=== PATIENT | female | born 1930 | race Caucasian/White ===

== ENCOUNTER 2016-12-10 11:33 | Day surgery (SDC) | payer MEDICARE ==
--- NOTE | 2016-12-06 13:37 | PCM.ANEPRE ---
Anesthesia Pre-Op Review Reason for Review: office request- re critical lab value- creatinine 5.11 Anesthesia Recommendations: Proceed with Procedure Additional Comments 86 yo with Stage V CKD followed by Dr. Guillaume with nephrology, not on dialysis, for bladder biopsy secondary to hematuria. Last visit with Dr. Guillaume in September showed Cr of 4.3. Latest Cr is 5.11. Per preop phone interview patient has no nausea, vomiting, confusion, or other uremic symptoms, and feels in her usual state of health. I spoke with Dr. Guillaume and if patient is symptomatic there is no change in management based on her latest Cr value. Proceed with DOS evaluation. Chart Reviewed by: Cy Ribeiro MD Dec 06, 2016 13:37
[~2016-12-10] VITALS: Ht 157.5 cm; Wt 63.7 kg
[2016-12-10] VITALS (9 sets, daily range): BP systolic 119–146; BP diastolic 53–80; PULSE 54–70; RESP 10–16; O2SAT 95–100
[~2016-12-10 11:33] MED LIST: ASPI325T32 PO; CARV12.52 PO; CHOL200025 PO; CYAN500 PO; CeFAZolin 2 Gm/50 mL D5W IV Premix IV ONE; EPO IV; FOLI0.8T PO; FURO40TA4 PO; LIP40 PO; Lactated Ringer's 1,000 ML IV ONE; OXYB5TAB10 PO; SODI325T PO; [UNRECOGNIZED DRUG - OTHER]
[2016-12-10] MEDS ORDERED: Dexamethasone 4 mg/mL Inj ONE (11:34)
[2016-12-10] MEDS ORDERED: fentaNYL-PF 50 mCg/mL 2 mL Inj ONE (11:34)
[2016-12-10] MEDS ORDERED: Ondansetron 2 mg/mL 2 mL Inj ONE (11:34)
[2016-12-10] MEDS ORDERED: Propofol 10,000 mCg/mL 20 mL Inj ONE (11:34)
[2016-12-10] MEDS ORDERED: CeFAZolin Inj 2 gm / 50mL D5W IV ONE (11:39)
[2016-12-10] MEDS ORDERED: 0.9% Sodium Chloride 500 ML IV ONE (13:10)
--- NOTE | 2016-12-10 13:12 | PCM.HPANE ---
Patient Data Surgeon Admitting Provider: Attending Provider:Radha Martin MD Primary Care Physician:Kelley Goldstein Other Provider:Vida Andrew Anesthesia Reason for Visit Gross Hematuria Ht/WT & BMI Height (Feet): 5 Height (Inches): 2.00 Weight (Kilograms): 63.7 Body Mass Index 25.00 Allergies Coded Allergies: iodine (Verified Allergy, Intermediate, 10/25/15) Sulfa (Sulfonamide Antibiotics) (Verified Adverse Reaction, Mild, diarrhea , vomiting, 10/25/15) Uncoded Allergies: CRAB (Allergy, Unknown, STOMACH CRAMP (EXCEPT DUNGESS), 06/01/04) LOBSTER,CRAB (Allergy, Unknown, 06/01/04) dyes (Allergy, Unknown, 06/01/04) Past Anesthesia History Anesthesia History: Denies:: Abnormal Airway, Anesthesia Reactions (nauseated, takes a while to wake up-stayed overnight), Difficult Intubation, Fam Anesthesia Reaction Diabetes History Hx Diabetes?: No MRSA MRSA: No Medications Blood Thinner: Aspirin Hypertension Medication: Yes Home Meds Incl Beta Lurdes: Yes (Carvedilol 12.5mg) Date Beta Lurdes Taken: Dec 10, 2016 Time Beta Lurdes Taken: 0830 Reported Medications Cholecalciferol (Vitamin D3) (Vitamin D3)2,000 Unit Tablet2,000 Unit PO DAILY 12/06/16 Cyanocobalamin (Vitamin B12)500 Mcg Tablet1 Tab PO WEEKLY 12/06/16 Sodium Bicarbonate 325 Mg [id number] Tab PO DAILY 12/06/16 Oxybutynin Chloride 5 Mg Tablet5 Mg PO BID Ref 0 12/06/16 Furosemide 40 Mg Orguin30 Mg PO DAILY 12/06/16 Folic Acid 0.8 Mg Tablet0.8 Mg PO WEEKLY 12/06/16 [cranberry fruit ext] No Conflict Check1 Tab DAILY 12/06/16 Carvedilol 12.5 Mg Upzxqe24.5 Mg PO BID Ref 0 12/06/16 Atorvastatin (Lipitor)40 Mg Fqvzih87 Mg PO DAILY Ref 0 12/06/16 Aspirin 325 Mg Dqqbmo537 Mg PO DAILY #1 BOTTLE 12/06/16 [Epo 20] No Conflict Check20 Kg IV Monthly at [facility]- last november12/06/16 Discontinued Reported Medications Cholecalciferol (Vitamin D3) (Vitamin D3)2,000 Unit Capsule2,000 Unit PO DAILY 10/25/15 Ergocalciferol (Vitamin D2) (Vitamin D2)2,000 Unit Tablet2,000 Unit PO DAILY 10/25/15 Cyanocobalamin (Vitamin B-12) (Vitamin B-12)500 Mcg Fbudova529 Mcg PO DAILY 10/25/15 Sodium Bicarbonate 325 Mg Aqjpme68 Tab PO DAILY 10/25/15 Oxybutynin Chloride 5 Mg Tablet5 Mg PO DAILY Ref 0 10/25/15 Furosemide (Lasix)40 Mg Fossnj67 Mg PO DAILY 30 Days Ref 0 10/25/15 Folic Acid 0.8 Mg Tablet0.8 Mg PO WEEKLY 10/25/15 Cranberry Conc/Ascorbic Acid (Cranberry 6,000 mg Softgel)Unknown Strength CapsuleUnknown Dose PO DAILY 10/25/15 Carvedilol (Coreg)12.5 Mg Aknobk38.5 Mg PO BID Ref 0 10/25/15 Cinnamon Bark (Cinnamon)500 Mg Capsule1,000 Mg PO DAILY 10/25/15 Atorvastatin (Lipitor)40 Mg Ejvdrz16 Mg PO DAILY Ref 0 10/25/15 Aspirin 325 Mg Gjzknj647 Mg PO DAILY #1 BOTTLE 10/25/15 History History of ENT Problems?: No HEENT History: Positive for:: Cataracts (bilateral) Hearing Problem (no aides) Denies:: Abnormal Airway Difficult Intubation Dysphagia Sinus Problem TMJ Denture Type: None Teeth Condition: Within Normal Limits Other HEENT Pertinent History: chronic dry mouth... needs lozenges, gums to keep mouth moist Hx of Heart Problems?: Yes Cardiovascular History: Positive for:: Hypertension Denies:: AICD Abdominal Aortic Aneurism Cardiac Surgery Chest Pain Congestive Heart Failure Heart Murmur Irregular Heartbeat Pacemaker Peripheral Vascular Rheumatic Fever Hx of Respiratory Problem?: No Respiratory History: Denies:: Asthma COPD Emphysema Oxygen Administration Pneumonia Tuberculosis Use of C-PAP Machine Use of Inhalers / NEBS Hx Neurologic Problems?: Yes Neurological History: Denies:: Alzheimer's Disease CVA Dizziness (a little vertigo with hematuria now- "not bad") Headaches (past hx - not recently ) Multiple Sclerosis Parkinson's Disease Seizures TIA Hx of GI Problems?: Yes Hx of Problems?: Yes Genitourinary History: Positive for:: HX of Hemodialysis (CKD stage 5, Dr Guillaume ) Urinary Tract Infection (frequent) Denies:: Kidney Stones Female Hx: Denies:: Currently (hysterectomy) Problems with Breasts? Skin History: Denies:: History Skin Disorders? Pressure Ulcers Hx Musculoskeletal Problems?: Yes Musculoskeletal History: Positive for:: Joint Replacement (left hip) Osteoarthritis (lower spine, ) Denies:: Back Injury Fibromyalgia Myasthenia Gravis Systemic Lupus Hx of Psycho/Social Problems?: No Psycho Social History: Denies:: Anxiety Hx Depression Hx Surgeries?: Yes (hysterectomy, total hip, cysto, cataracts, ) Hx Any Other Health Problems?: Yes Other History: Positive for:: Cancer (bladder, uterine, BCC, SCC) Denies:: Thyroid Disease (remote hx of- no meds) History Blood Transfusions: Positive for:: Accept Blood Products? Denies:: Blood Transfusions (procrit once monthly if needed, since Jun 2016- last ) Hx Diabetes: No Hx Alcohol Use: YesAlcoholic Drinks Per Day: 3-4 times yearHx Substance Use: NoHave You Smoked inLast 12 mo: No Stop/Bang S-Snoring: Do You Snore Loudly: No T-Tired: feel tired, fatigued: Yes O-Obsered: Observed not breath: No P-Blood Pressure: treated: Yes B- Body Mass Index > 35 kg/m2: No A- Age over 50: Yes N- Neck Large Circumference: No G- Gender Male: No LAWANDA Total Score: 3 Risk Assessment Category Category 1A: Patient has history of documented sleep apnea, and HAS NOT received any narcotic, sedative or anesthesia administration during this stay. Category 1B: Patient has history of documented sleep apnea, and HAS received any narcotic , sedative or anesthesia administration during this stay Category 2: Patient has SUSPECTED Obstructive Sleep Apnea, and HAS received any narcotic , sedative or anesthesia administration during this stay. Category 3: Patient has SUSPECTED Obstructive Sleep Apnea and HAS NOT received narcotic, sedative or anesthesia administration during this stay. Category 4: Outpatient in Procedural Areas with known sleep apnea or who screen positive for High Risk via the STOP/BANG questionnaire. Exam Exam Vital Signs Vital Signs Date Time Temp Pulse Resp B/P Pulse Ox O2 Delivery O2 Flow Rate FiO2 12/10/16 12:00 36.2 58 16 145/61 100 Room Air General Appearance: Alert, Oriented X3, Cooperative, No Acute Distress HEENT/AIRWAY: MP 2 Lungs: Clear to Auscultation, Normal Air Movement Heart: Exam Unremarkable, Regular Rate/Rhythm, No Murmurs/Rubs/Gallops Plan Impression Patient chart reviewed, patient interviewed and anesthestic plan with risks, benefits, and alternatives discussed, and informed consent obtained. ASA Physical Status: ASA3 Severe Disease Anesthetic Plan: GA Bene/Risks/Altern/Consents: Yes HP Complete Prior to Induction: Yes Geovanny Rothman MD Dec 10, 2016 12:35
[2016-12-10] MEDS ORDERED: Lactated Ringer's 500 ML IV PRN (13:35)
[2016-12-10] MEDS ORDERED: fentaNYL-PF 50 mCg/mL 2 mL Inj IVPUSH PRN (13:35)
[2016-12-10] MEDS ORDERED: Dexamethasone 4 mg/mL Inj IVPUSH PRN (13:35)
[2016-12-10] MEDS ORDERED: EPHEDrine Sulfate 50 mg/mL Inj IVPUSH PRN (13:35)
[2016-12-10] MEDS ORDERED: Lactated Ringer's 1,000 ML IV SCH (13:35)
[2016-12-10] MEDS ORDERED: Ondansetron 2 mg/mL 2 mL Inj IVPUSH PRN (13:35)
[2016-12-10] MEDS ORDERED: Atropine 0.4 mg/mL Inj IVPUSH PRN (13:35)
[2016-12-10] MEDS ORDERED: Phenylephrine 10,000 mCg/mL Inj IVPUSH PRN (13:35)
[2016-12-10] MEDS ORDERED: MetoCLOpramide 5 mg/mL 2 mL Inj IVPUSH PRN (13:35)
[2016-12-10] MEDS ORDERED: Labetalol 5 mg/mL 4 mL Inj IV PRN (13:35)
[2016-12-10] MEDS ORDERED: Ondansetron 8 mg ODT Tablet PO PRN (13:55)
[2016-12-10] MEDS ORDERED: HYDROcodone-APAP 5-325 mg Tablet PO PRN (13:55)
--- NOTE | 2016-12-10 14:08 | PCM.ANEP1 ---
Post Anesthesia Phase 1 PACU Phase 1 Assessment Vital Signs Vital Signs Date Time Temp Pulse Resp B/P Pulse Ox O2 Delivery O2 Flow Rate FiO2 12/10/16 14:06 58 15 145/57 100 Room Air 12/10/16 14:00 57 10 145/59 97 Room Air 12/10/16 13:55 57 12 133/61 96 Room Air 12/10/16 13:52 59 10 119/64 98 Room Air 12/10/16 13:47 36.7 61 13 120/53 98 Room Air 12/10/16 12:00 36.2 58 16 145/61 100 Room Air Anesthetic Administered: GA Level of Alertness: Awake, talking Pain: No Nausea or Vomiting: No Oxygen Delivery: Room Air Lungs: Clear to Auscultation, Normal Air Movement Dermatome Level: Full Sensation Complications: No Patient Instructions Provided: Yes Geovanny Rothman MD Dec 10, 2016 14:08
--- NOTE | 2016-12-11 13:58 | OP ---
[address] [address] OPERATIVE REPORT PATIENT: EWELINA ELLIOTT : 1930 MR#: [id number] ADMIT: 12/10/2016 JOB ID: [id number] DATE OF SURGERY: 12/10/2016 SURGEON: Radha Martin MD. PROCEDURE NAME: Cystoscopy with bladder biopsy and fulguration For total of 2-3 cm in size. SURGEON: Radha Martin MD. ANESTHESIA: General. PREOPERATIVE DIAGNOSIS(ES): Gross hematuria and bladder lesion, history of bladder cancer. POSTOPERATIVE DIAGNOSIS(ES): Gross hematuria and bladder lesion, history of bladder cancer. INDICATIONS: The patient is an 86-year-old with longstanding history of bladder cancer. Recently with episodic gross hematuria once again. Scoped in clinic. Found to have a small papillary apparent lesion which was slightly hemorrhagic and causing her to have ongoing clots. She was set up for cystoscopic removal of this. PROCEDURE IN DETAIL: After appropriate informed consent was obtained, the patient was brought to the operating room. She received IV antibiotics prior to the procedure. SCDs were placed. Adequate general anesthesia was induced. She was carefully placed in the dorsal lithotomy position. All pressure points were carefully padded. Cleaned, prepped, and draped in the usual sterile fashion. Rigid scope was introduced in the patient's bladder which was surveyed in a systematic fashion. There was some organized clot at the base of the patient's bladder and this was irrigated out. We then could easily identify once again the small area of papillary tumor. This was grasped with a cold cup biopsy forceps and cauterized with electrocautery to where there was no more hematuria whatsoever. We then turned our attention to a small area adjacent to this, which was a little bit unusual in appearance. Cold cup biopsy was taken there with two bites and the area itself was cauterized. There was a total of 2-3 cm area cauterized totally. The patient's bladder was completely clear. The bladder was otherwise normal in appearance aside from other old clot and other old scar tissue. She tolerated this very well. Bladder was drained. She was given a B and O suppository, awakened, and taken in stable condition to the postanesthesia care unit.
--- NOTE | 2016-12-13 12:22 | PATH ---
SURGICAL PATHOLOGY Attending Physician:Radha Martin MD CASE STATUS: Signed Out PATIENT NAME: EWELINA ELLIOTT PID: [id number] : 1930 DATE COLLECTED:12/10/2016 21:49 SPECIMEN: 1: Bladder, Biopsy 2: Bladder, Biopsy CLINICAL HISTORY: GROSS HEMATURIA 1). BLADDER HEMORRHAGIC LESION 2). BLADDER LESION FINAL DIAGNOSIS: 1.BLADDER HEMORRHAGIC LESION: PAPILLARY UROTHELIAL CARCINOMA, HIGH GRADE, WITH ASSOCIATED FLAT UROTHELIAL CARCINOMA IN SITU. NEGATIVE FOR EVIDENCE OF INVASION OF LAMINA PROPRIA. NO MUSCULARIS PROPRIA TISSUE IDENTIFIED. 2.SPECIMEN DESIGNATED BLADDER LESION: DIFFUSELY INFILTRATING UROTHELIAL CARCINOMA, HIGH GRADE. FOCAL PAPILLARY AREAS AND FOCAL FLAT UROTHELIAL CARCINOMA IN SITU IDENTIFIED. INFILTRATION APPEARS TO INVOLVE LAMINA PROPRIA WITH NO MUSCULARIS PROPRIA IDENTIFIED. ICD10 CODE C67.9 NOTE: Results of this evaluation are telephoned to the office of Dr. Radha Martin at 0955 on 12/13/16. As part of a routine quality technician, Dr. Leslye Brandon has also reviewed this case and agrees with the diagnosis. GROSS DESCRIPTION: Received are two formalin-filled containers, both labeled with the patient' s name: 1. Received in formalin, labeled with the patient' s name and "bladder hemorrhagic lesion", is a collection of lucia-cervantes tissue fragments measuring 0.5 x 0.3 x 0.2 cm in aggregate. All fragments are totally submitted in cassette 1A. 2. Received in formalin, labeled with the patient' s name and "bladder lesion", are two fragments of lucia-cervantes tissue measuring 0.5 x 0.5 x 0.3 cm in aggregate. All fragments are totally submitted in cassette 2A. ([id number]) MICRO DESCRIPTION: See diagnosis. ICD-9 CODES: CPT CODES: 1: 05537 2: 86883 Electronically Signed Out Jaya Aranda MD [facility], [place] [address] Technical component performed at [facility], [address], [place], [address]
== END 2016-12-10 23:59 | disposition home or self-care (01) ==
LOC: SAS 11:33
PROVIDERS: ATTEND Urology
DX: C67.9 Malignant neoplasm of bladder, unspecified (principal); R31.0 Gross hematuria; I12.0 Hypertensive chronic kidney disease with stage 5 chronic kidney disease or end stage renal disease; N18.5 Chronic kidney disease, stage 5; E78.5 Hyperlipidemia, unspecified; Z85.828 Personal history of other malignant neoplasm of skin; Z85.41 Personal history of malignant neoplasm of cervix uteri; Z87.440 Personal history of urinary (tract) infections; Z85.51 Personal history of malignant neoplasm of bladder; Z92.3 Personal history of irradiation; Z79.82 Long term (current) use of aspirin; Z96.642 Presence of left artificial hip joint; Z90.710 Acquired absence of both cervix and uterus
CPT/HCPCS: 52235; J0690; J1100; J2405; J3010; J7030